=== PATIENT | female | born 1965 | race Native Hawaiian/Other Pacific Islander ===

== ENCOUNTER 2018-07-30 05:55 | Day surgery (SDC) | payer BC, OTHER ==
[~2018-07-30] VITALS: Ht 170.2 cm; Wt 111.6 kg
[~2018-07-30 05:55] MED LIST: FISH OIL 1,001000 M2 PO; LISINOPRIL20 MG PO; METFORMIN HCL500 MG PO; MULTI VITAMIN1 EACH PO; SINGULAIR 10 MG10 M1 PO; SYMBICORT160 MCG/4. INH; VENTOLIN HFA 1818 GM INH
[2018-07-30 06:32] VITALS: BP 139/80
[2018-07-30 11:32] VITALS: BP 139/80
--- NOTE | 2018-07-30 16:41 | O ---
[address] [address] OPERATIVE REPORT Name: GREGORY TOBIN Room #: DEP [facility]..#: [id number] Admission: 07/30/18 ������������������ Attend Phys: Octavio Macdonald MD Discharge: 07/30/18 ������������������ Date of : 69 Report #: [id number] THIS REPORT FOR: //name// CC: Cullen Macdonald DATE OF SERVICE: 07/30/2018 SERVICE: Orthopedics. FACILITY: [facility]. SURGEON: Octavio Macdonald MD QUALITY ASSURANCE INTERN: Priscilla Juan NP. PREOPERATIVE DIAGNOSES: 1. Left hip pain. 2. Acute left hip injury. 3. Left hip impingement. 4. Left hip labral tear. POSTOPERATIVE DIAGNOSES: 1. Left hip pain. 2. Acute left hip injury. 3. Left hip impingement. 4. Left hip labral tear. 5. Left hip chondromalacia. PROCEDURES: 1. Left hip arthroscopic labral reconstruction. 2. Left hip arthroscopic subspine acetabuloplasty. 3. Left hip arthroscopic Cam osteochondroplasty. 4. Left hip arthroscopic chondroplasty. COMPLICATIONS: None. DRAINS: None. SPECIMENS: None. ANESTHESIA: General with regional. FINDINGS: 1. Allograft labral reconstruction secured with Beatriz NanoTack suture anchor x 6. [address] [address] OPERATIVE REPORT Name: GREGORY TOBIN Room #: DEP [facility]#: [id number] Admission: 07/30/18 ������������������ Attend Phys: Octavio Macdonald MD Discharge: 07/30/18 ������������������ Date of : 69 Report #: [id number] 2. Small subspine lesion treated with subspine recession. 3. Small Cam lesion at the anterolateral more distal neck treated with Cam osteoplasty. 4. Transverse capsulotomy repair with #2 Vicryl x 3. 5. Increased complexity due to allograft reconstruction procedure and patient habitus which required largest cannulas available and additional leg manipulation to ensure adequate access for the reconstruction. HISTORY: The patient is a 52-year-old female with history of left hip pain. She had multiple injuries, most recently when she slipped on the ice doing a splits maneuver to the left hip approximately 6 months ago. She had extensive conservative treatment including rest, activity modifications, physical therapy, oral medications, modalities, all without sufficient relief. She had an MRI, which showed a complex labral tear with significant intrasubstance involvement and was concerned about the healing capacity of the tissue based on this appearance as well as other factors. We therefore discussed about a labral allograft reconstruction as an optimal choice in this situation. She agreed and wished to proceed. Risks, benefits, alternatives, and indications of surgery were discussed with her in detail. Risks include but not limited to pain, bleeding, infection, injury to nerves or blood vessels, persistent pain despite surgical intervention, failure of any repairs, reconstructions, progression of any preexisting chondral injury, need for further surgery including revision with arthroplasty as well as complications related to anesthesia. PROCEDURE IN DETAIL: After the left lower extremity was correctly identified in the preoperative holding as the operative extremity, the patient underwent placement of a single shot regional nerve block. She was then taken to the operating room where general anesthesia was induced without complication. She was padded appropriately. Prophylactic antibiotics were administered at appropriate time. Femoral head and neck junction was mapped out under fluoroscopy. There was noted to be a small Cam deformity, which we confirmed intraoperatively. Left leg was then prepped and draped in standard sterile fashion. Time-out procedure was performed. Traction was applied to the left leg. A standard anterolateral viewing portal was established followed by mid anterior working portal and then transverse capsulotomy was performed. Synovitis was noted and was resected with the shaver. The labrum itself was quite mobile and torn. There was a segmental tear running longitudinally. There was significant contusion and swelling of the labrum as well. The entire anterior half of the labrum was unstable on probing. It was excised with a biter, followed by the shaver and then the acetabular rim was prepared with the bur. There was a small subspine pincer lesion at the area where the labral tear was the most significant, so I used a bur to perform a subspine extraarticular acetabuloplasty by recessing the anterior inferior iliac spine region. Sharp edges were made at the [place] labrum anteriorly and then posterolaterally for labral repair to the reconstructing graft. After the acetabular rim was prepared, the 6 [place] cinch [place] NanoTack suture anchors with tape were [address] [address] OPERATIVE REPORT Name: GREGORY TOBIN Room #: DEP [facility]#: [id number] Admission: 07/30/18 ������������������ Attend Phys: Octavio Macdonald MD Discharge: 07/30/18 ������������������ Date of : 69 Report #: [id number] then placed along the rim using fluoroscopy for guidance. Traction was then let down. The hip was flexed. The small Cam lesion was identified and visually confirmed. The bur was used to perform a limited Cam osteoplasty in the region of approximately 15-40 degrees. Total alpha angle at its worst was approximately 57 degrees. After this was completed, attention was turned towards the reconstruction. Traction was then reapplied. The graft, which had been prepared out of the fascia cynthia allograft was then passed into the hip. One limb of the first anchor anteromedially had been passed through the [place] labrum and then the other limb was passed through the graft and then they were tied upon themselves to securely fix the graft anteromedially. Cerclage sutures were then used with the remaining sutures working anteriorly to laterally and posteriorly. The sixth anchor had one limb passed to the labrum as well and then this was sewn around the graft and then the excessive graft was then resected and removed. At this point, the labrum was probed and found to be stable. Traction was let down and then the transverse capsulotomy was closed with a total of three #2 Vicryl sutures. Final x-rays have been taken. Instruments were removed from the hip. Arthroscopic effusion was drained. Portal sites were closed, sterile dressing was applied and the patient was awakened from anesthesia and taken to recovery room in stable condition. There were no complications and all counts were recorded as correct. ��������������������������������������������� <ELECTRONICALLY SIGNED> ���������������������������������������� By: Octavio Macdonald MD ��������������������������������������������� 07/30/18 1641 1118 1201 Octavio Macdonald MD /evonne
--- NOTE | 2018-07-30 17:08 | EKG ---
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 : 1965 Requested By: Octavio Macdonald Order Number: [id number] MD: Magdaleno Ivan Measurements Intervals [place] Rate: 78 P: 54 DC: 166 QRS: 18 QRSD: 94 T: 7 QT: 393 QTc: 448 Interpretive Statements Sinus rhythm No significant abnormality No previous ECG available for comparison Electronically Signed On 07-30-2018 17:08:52 CDT by Magdaleno Ivan [email or web address] ��������������������������������������������� <ELECTRONICALLY SIGNED> ���������������������������������������� By: Magdaleno Ivan MD, [facility] ��������������������������������������������� 07/30/18 1708 06 2 Magdaleno Ivan MD, FACC /EPI
== END 2018-07-30 12:55 | disposition home or self-care (01) ==
LOC: OR 05:55 → TBA 05:56 → OR 11:03
DX: S79.912A Unspecified injury of left hip, initial encounter (principal); S73.102A Unspecified sprain of left hip, initial encounter; M25.852 Other specified joint disorders, left hip; M94.252 Chondromalacia, left hip; I10 Essential (primary) hypertension; J45.909 Unspecified asthma, uncomplicated; K21.9 Gastro-esophageal reflux disease without esophagitis; Z98.890 Other specified postprocedural states; Z79.899 Other long term (current) drug therapy; W17.89XA Other fall from one level to another, initial encounter; Y93.29 Activity, other involving ice and snow; Y92.89 Other specified places as the place of occurrence of the external cause; Y99.8 Other external cause status
CPT/HCPCS: 50010; 50101; 50386; 51320; 51538; 52001; 52282; 52304; 52313; 55430; 56524; 56525; 56527; 57092; 57103; 62110; 62900; 64039; 70005